=== PATIENT | male | born 1980 | race Two or more races ===

== ENCOUNTER 2023-12-11 01:13 | Outpatient (CLI) | payer SELFPAY | END 2023-12-11 01:14 | disposition critical access hospital (66) | LOC: EMS 01:13 | DX: T78.02XA Anaphylactic reaction due to shellfish (crustaceans), initial encounter (principal) | CPT/HCPCS: A0425; A0427 ==

== ENCOUNTER 2023-12-11 01:34 | Emergency (ER) | payer BC, MEDICAID ==
--- NOTE | 2023-12-11 01:51 | ED Physician Documentation ---
History of Present Illness - Stated complaint Stated Complaint: ALLERGIC REACTION - History obtained from History obtained from: Patient - Additonal information Additional information: Patient is brought to the emergency department by EMS for chief complaint of allergic reaction. He has a known shellfish allergy and he wanted to eat some scallops tonight. He states that normally he can eat scallops if he just takes some Benadryl and then takes a shower and sleeps it off. However, tonight, he gets this will more than normal. It started about 45 minutes after he ate the scallops which was 2 hours ago. The patient states that he took 50 mg of Benadryl but did not notice improvement. He was starting to swell in the lips and have tightness in his throat when EMS showed up. They gave him 2 shots of epi, IV Solu-Medrol, and 25 more milligrams of Benadryl. The patient is feeling quite a bit better now. He says that his throat feels almost back to normal and his breathing is better. He was initially producing a lot of mucus but he states that has come down a bit. PD PAST MEDICAL HISTORY - Past Medical History Cardiovascular: None Respiratory: Asthma Neuro: None Endocrine/Autoimmune: None GI: None : None HEENT: None Psych: None Musculoskeletal: Chronic back pain Derm: None - Past Surgical History Past Surgical History: No - Present Medications Home Medications: Ambulatory Orders Medication Instructions Recorded Confirmed EPINEPHrine [Epinephrine] 0.3 mg IJ ONCE PRN #1 each 12/11/23 - Allergies Allergies/Adverse Reactions: Allergies Allergy/AdvReac Type Severity Reaction Status Date / Time scallops Allergy Anaphylaxis Verified 12/11/23 01:50 shellfish derived Allergy Anaphylaxis Verified 12/11/23 01:50 - Social History Does the pt smoke?: Yes Smoking Status: Current every day smoker Does the pt drink ETOH?: Yes Does the pt have substance abuse?: No - Immunizations Immunizations are current?: Yes PD ED PE NORMAL - Vitals Vital signs reviewed: Yes - General General: Alert and oriented X 3, No acute distress, Well developed/nourished - HEENT HEENT: Atraumatic, PERRL, Moist mucous membranes, Other (Some mild residual swelling of the eyelids; No intraoral edema.No hydropic uvula.) - Neck Neck: Supple, no meningeal sign - Cardiac Cardiac: RRR, No murmur - Respiratory Respiratory: No respiratory distress, Clear bilaterally - Abdomen Abdomen: Soft, Non tender, Non distended - Derm Derm: Warm and dry - Extremities Extremities: No deformity - Neuro Neuro: Alert and oriented X 3 - Psych Psych: Normal mood, Normal affect Results - Vitals Vitals: Vital Signs - 24 hr 12/11/23 12/11/23 12/11/23 01:41 01:49 02:00 Temperature 36.7 C Heart Rate 109 H 104 H 106 H Respiratory 27 H 26 H 20 Rate Blood Pressure 140/86 H O2 Saturation 95 95 12/11/23 12/11/23 12/11/23 02:09 02:30 03:00 Temperature Heart Rate 97 99 88 Respiratory 22 20 17 Rate Blood Pressure 117/68 152/97 H 125/79 O2 Saturation 100 92 96 12/11/23 04:00 Temperature Heart Rate 72 Respiratory 16 Rate Blood Pressure 122/86 H O2 Saturation 99 Oxygen O2 Source Room air - Labs Labs: Laboratory Tests 12/11/23 01:40 Ethyl Alcohol 56.7 PD Medical Decision Making - ED course Complexity details: reviewed results, re-evaluated patient, considered differential, d/w patient ED course: The patient was greatly improved after being treated en-route by EMS. The patient was observed in the emergency department for 2 hours after which his swelling was completely resolved. He had received only a racemic epinephrine treatment and dose of Pepcid here, as EMS had already given him everything en route otherwise. I felt the patient was stable for discharge home. His alcohol level was only 54 and the patient was alert and coherent. I have discussed with the patient that he should never eat shellfish again and certainly should not rely on only Benadryl to save him from a reaction in the future. I have prescribed an EpiPen for the patient, should he have another anaphylactic reaction. Departure - Departure Disposition: 01 Home, Self Care Clinical Impression: Allergic reaction Qualifiers: Encounter type: initial encounter Qualified Code(s): T78.40XA - Allergy, unspecified, initial encounter Anaphylactic reaction Qualifiers: Encounter type: initial encounter Qualified Code(s): T78.2XXA - Anaphylactic shock, unspecified, initial encounter Condition: Stable Instructions: ED Allergic Reaction General Other Prescriptions: EPINEPHrine [Epinephrine] 0.3 mg IJ ONCE PRN #1 each PRN Reason: Anaphylaxis Comments: You were treated by the medics and in the emergency department for an anaphylactic allergic reaction. This is an allergic reaction that is life- threatening and can cause swelling of the structures of the mouth and throat. If you do not get help soon enough, you can suffocate and . As such, it is extremely important that you do not eat shellfish anymore. Even if you have Benadryl to try to combat allergic reaction, this is a dangerous thing to be doing. Benadryl will not be able to stop an anaphylactic reaction from happening. I have prescribed an EpiPen for you to have on hand in case she were inadvertently exposed to shellfish and began to have a severe reaction. The prescription for this has been electronically transmitted to the [facility] in [place], your pharmacy of choice on record. Please get this filled immediately and take it with you wherever you go. Forms: PCP List Discharge Date/Time: 12/11/23 04:27
[2023-12-11] MEDS: RACEPINEPHRINE 2.25% NEB INH STA (02:00)
[2023-12-11] MEDS: SODIUM CHLORIDE FOR INHALATION 5 ML NEB INH STA (02:00)
[2023-12-11] MEDS: FAMOTIDINE 20 MG/2 ML VIAL IVP STA (02:03)
[2023-12-11 04:24] VITALS: BP 122/86; O2SAT 99
== END 2023-12-11 04:27 | disposition home or self-care (01) ==
LOC: EDUNIT# → ED 01:34
DX: T78.02XA Anaphylactic reaction due to shellfish (crustaceans), initial encounter (principal); Y93.89 Activity, other specified; F17.200 Nicotine dependence, unspecified, uncomplicated
CPT/HCPCS: 36415; 82077; 94640; 96374; 99284